=== PATIENT | male | born 1955 | race African-American/Black ===

== ENCOUNTER 2018-11-07 18:05 | Inpatient (IN) | payer SELFPAY ==
[~2018-11-07 18:05] MED LIST: ISOVUE-370 76%-LOCM 1 ML ONE
[2018-11-07] MEDS ORDERED: Nitroglycerin 0.4 MG TAB 1 EACH ONE (19:28)
[2018-11-07] MEDS ORDERED: Nitroglycerin 2% Ointment 1 INCH/1 GM Packet ONE (19:52)
[2018-11-07] MEDS: Nitroglycerin 2% Ointment 1 INCH/1 GM Packet TOP SCH (19:58)
[2018-11-07 20:00] LABS: CKMB 9.3 ng/mL (0-6.6)
--- NOTE | 2018-11-07 20:51 | CT ---
CT ANGIO CHEST AND ABDOMEN WITH INTRAVENOUS CONTRAST ENHANCEMENT AND 3D RECONSTRUCTIONS: HISTORY: Chest pain. TECHNIQUE: This is done per the aortic dissection protocol. FINDINGS: CHEST: The lungs are clear of any infiltrative process. The lungs appear somewhat hyperexpanded. N o pleural effusions. No infiltrates. No significant mediastinal or hilar adenopathy. There is good pulmonary arterial opacification. There is no CT evidence for pulmonary embolus. There is adequate arterial opacification with atherosclerotic changes of the aortic arch. There are no signs of dissection. The ascending aorta is 3.3 cm in AP dimension. ABDOMEN: The liver, spleen, pancreas, and gallbladder regions appear unremarkable, given the angiogr aphic phase. The right and left adrenal glands and the right and left kidneys are normal in size. No free fluid. The abdominal aorta is normal in caliber. No signs of dissection. The iliac vessels are tortuous. IMPRESSION: No evidence of aortic aneurysm or dissection. POS: RAND
[2018-11-07] MEDS ORDERED: Ondansetron ODT 4 MG TAB PO PRN (21:53)
[2018-11-07] MEDS ORDERED: Morphine 2 MG/ML SYRINGE SLOW IVP PRN (21:53)
[2018-11-07] MEDS ORDERED: Temazepam 15 MG CAP PO PRN (21:53)
[2018-11-07] MEDS ORDERED: Nitroglycerin 0.4 MG TAB (25 Tab Bottle) SL PRN (21:53)
[2018-11-07] MEDS ORDERED: Ondansetron PF 4 MG/2 ML Vial IVP PRN (21:53)
[2018-11-07] MEDS ORDERED: Acetaminophen 325 MG TAB PO PRN (21:53)
[2018-11-07] MEDS ORDERED: Aspirin 325 mg Enteric Coated Tablet PO SCH (22:15)
[2018-11-07] MEDS ORDERED: Enoxaparin Sodium 60 MG/0.6 ML SYRINGE SC SCH (22:15)
[2018-11-07] MEDS ORDERED: Aspirin 325 MG TAB PO SCH (22:15)
[2018-11-07 22:25] LABS: Troponin I 1.344 ng/mL (< 0.028)
[2018-11-07] MEDS ORDERED: Enoxaparin Sodium 60 MG/0.6 ML SYRINGE ONE (23:15)
--- NOTE | 2018-11-08 03:08 | HP ---
PRIMARY CARE PHYSICIAN: The patient does not have a primary care physician. CHIEF COMPLAINT: Chest pain. HISTORY OF PRESENT ILLNESS: Mr. Ontiveros is a pleasant 63-year-old gentleman, who has no significant past medical history. He says that around 12:40 pm, he had just finished making a sandwich and started to eat it when he started having pain in his chest. He said it went all across the front side of his chest and went into his back. He said it felt scary. He said both hands were weak and he felt like he could not hold anything tightly. He felt short of breath like he could not breathe and felt cold all over. He did not have any nausea or vomiting however. Because of these symptoms, he went to the ER in [place]. He says they gave him a sublingual nitroglycerin and the pain went away after about 30 minutes. He says that the pain lasted for about 2 hours altogether. He has never had any pain like this before. He denies any palpitations. No lower extremity edema. He does have occasional shortness of breath and says he has been diagnosed with "bronchitis." He does admit to a long history of smoking for at least 20 years. REVIEW OF SYSTEMS: All systems were reviewed and are negative except for that mentioned in the history of present illness. PAST MEDICAL HISTORY: Significant for bronchitis, he has had couple of episodes. PAST SURGICAL HISTORY: Negative. ALLERGIES: NO KNOWN DRUG ALLERGIES. SOCIAL HISTORY: He is single, but he does have a girlfriend. He has 8 children, who live in [place] where he is originally from. He has been in this country for about 20 years. He smokes cigars about 2 to 3 a day. He smokes marijuana, but no other drugs. He does drink a couple of beers daily and he would like to be a full code. He has never designated anybody to be his surrogate decision maker. FAMILY HISTORY: Significant for bronchitis. CURRENT MEDICATIONS: None. PHYSICAL EXAMINATION: GENERAL: He is alert and oriented. He appears to be in no acute distress. VITAL SIGNS: Blood pressure is 119/80, heart rate in the 80s, respiratory rate is 16, and he is afebrile. HEENT: His pupils are equal, round, and reactive. Extraocular muscles are intact. Sclerae anicteric. Throat, there is no erythema, no exudates. NECK: No adenopathy. No bruits. LUNGS: Clear to auscultation. There is no wheezing. No rales. No rhonchi. CARDIOVASCULAR: He had a normal S1 and S2. I did not appreciate an S3 or S4. No murmurs, clicks, or rubs. ABDOMEN: Soft. It is nontender and nondistended. Positive for bowel sounds. There is no rebound, no guarding. No organomegaly. EXTREMITIES: There is no edema. No calf tenderness. No joint crepitus. NEUROLOGIC: Cranial nerves 2 through 12 are grossly intact. His muscle strength is 5/5 in both his upper and lower extremities. SKIN AND INTEGUMENT: No skin changes. No rashes. LABORATORY DATA: Troponin was 0.363. His white blood cell count is 8.2, hemoglobin 15.9, hematocrit is 47.1, and platelet count is 208. Sodium 138, potassium 3.9, chloride is 103, CO2 is 24, BUN of 8, creatinine 0.83, glucose is 143, total bilirubin is 1.7. IMAGING: EKG; sinus rhythm, the rate was 57. There were no ST wave changes. This is by my reading. Chest x-ray showed some increased interstitial markings. He may have had a nodule possibly in the right lower lobe. Heart size was normal. This is also by my reading. ASSESSMENT: 1. This is a pleasant 63-year-old gentleman who presents with chest pain and also an elevated troponin. CT was negative for aneurysm or dissection. The most likely etiology is an acute coronary syndrome, possibly NSTEMI. He will be admitted to telemetry. We will place him on aspirin, nitrates, a beta-enid as tolerated and Lovenox. Obtain an echocardiogram. Consult Cardiology. He has been counseled on the dangers and the need to stop smoking. Further recommendations to follow. 2. Probable chronic obstructive pulmonary disease. It is noted that his oxygen level has been fluctuating here in the ER. He has a long history of smoking. We will place him on DuoNeb p.r.n. 3. He will be placed on GI prophylaxis. Job ID: [id number]
[2018-11-08 03:31] LABS: #Basophils 0.1 thou/uL (0.0-0.2); #Eosinphils 0.6 thou/uL (0.0-0.7); #Monocytes 0.8 thou/uL (0.11-0.59); #Neutrophils 3.7 thou/uL (1.40-6.50); %Basophils 1.3 % (0.0-1.0); %Eosinophils 7.1 % (0.0-10.0); %Lymphocytes 36.3 % (21.0-51.0); %Monocytes 9.4 % (0.0-10.0); %Neutrophils 45.8 % (42.0-75.0); Hemoglobin 14.6 g/dL (14.0-18.0); Mean Corpuscular HGB CONC 33.7 g/dL (32.0-36.0); Mean Corpuscular Hemoglobin 32.9 pg (27.0-31.0); Mean Corpuscular Volume 97.7 fL (78.0-98.0); Platelet Count 214 thou/uL (130-400); RBC Distribution Width 11.2 % (11.5-14.5); Red Blood Cell (RBC) Count 4.43 mill/uL (4.70-6.10); White Blood Cell (WBC) Count 8.2 thou/uL (4.8-10.8)
[2018-11-08 03:51] LABS: Anion Gap 11 mmol/L (10-20); BUN (Urea Nitrogen) 7 mg/dL (8.4-25.7); Calc. Creatinine Clearance 0 mL/min (70-130); Calcium 9.4 mg/dL (7.8-10.44); Carbon Dioxide 27 mmol/L (23-31); Cardiac Risk 3.4 (Less than 4.5); Chloride 103 mmol/L (98-107); Cholesterol 196 mg/dl (< 200 Desired); Estimated GFR-MDRD Greater than 90; Glucose 95 mg/dL (80-115); HDL Cholesterol 58 mg/dL (>60 Neg Risk); LDL Cholesterol, Calculated 125 mg/dL; Potassium 3.8 mmol/L (3.5-5.1); Sodium 137 mmol/L (136-145); Triglycerides 65 mg/dL (Less than 150)
[2018-11-08] MEDS ORDERED: Dextrose 5 %-0.45 % NaCl 1,000 ML IV SCH (08:30)
[2018-11-08 09:28] LABS: CKMB 14.6 ng/mL (0-6.6)
[2018-11-08] MEDS ORDERED: Famotidine 20 MG TAB ONE (09:48)
[2018-11-08] MEDS ORDERED: Aspirin 325 MG TAB ONE (09:50)
[2018-11-08] MEDS ORDERED: Enoxaparin Sodium 60 MG/0.6 ML SYRINGE ONE (09:50)
[2018-11-08 12:10] LABS: Critical Call Chem Troponin I RESULT DECREASING; Troponin I 3.548 ng/mL (< 0.028)
[2018-11-08 12:43] LABS: Amphetamine Not Detected (NotDetected); Barbiturates Screen Not Detected (NotDetected); Benzodiazepine Screen Not Detected (NotDetected); Cocaine Metabolite Screen Not Detected (NotDetected); Medtox Control Line Valid? VALID (VALID); Medtox Reader # READER 4; Methadone Not Detected (NotDetected); Methamphetamine Not Detected (NotDetected); Opiate Screen Not Detected (NotDetected); Oxycodone Screen Not Detected (NotDetected); Phencyclidine (PCP) Not Detected (NotDetected); THC/Cannabinoid Screen Detected (NotDetected); Tricyclic Screen Not Detected (NotDetected)
[2018-11-08 17:21] VITALS: BMI 18.3
[2018-11-08] MEDS ORDERED: Communication Order-Pharmacy FS SCH (17:45)
[2018-11-08] MEDS: Aspirin 325 mg Enteric Coated Tablet PO SCH (18:16)
[2018-11-08] MEDS: Enoxaparin Sodium 60 MG/0.6 ML SYRINGE SC SCH ×2 (18:16→21:11)
[2018-11-08] MEDS: Carvedilol 3.125 MG TAB PO SCH ×2 (18:16→19:13)
[2018-11-08] MEDS: Famotidine 20 MG TAB PO SCH ×2 (18:17→21:11)
[2018-11-08] MEDS: Nitroglycerin 2% Ointment 1 INCH/1 GM Packet TOP SCH ×2 (18:17→21:26)
--- NOTE | 2018-11-08 18:59 | PDOC.PN ---
- Subjective Encounter Start Date: 11/08/18 Encounter Start Time: 09:30 Patient seen and examined for NSTEMI. No CP/SOB or palpitations. No new complaints. No overnight events - Objective Resuscitation Status - Order Detail: 11/07/18 21:44 Resuscitation Status Routine Resuscitation Status: FULL: Full Resuscitation MAR Reviewed: Yes Vital Signs & Weight: Vital Signs (12 hours) Temp Pulse Resp BP Pulse Ox 11/08/18 17:35 98 11/08/18 17:17 97.8 F 60 18 121/68 95 Weight Weight 110 lb Result Diagrams: 11/08/18 03:18 11/08/18 03:18 Additional Labs: Laboratory Tests 11/08/18 11/08/18 08:27 10:10 CK-MB (CK-2) 14.6 H* Troponin I 4.488 H* U Cannabinoids Screen Detected H Radiology Reviewed by me: Yes (CXR - No infiltrate) EKG Reviewed by me: Yes (Tele SR) Phys Exam - Physical Examination Constitutional: NAD Respiratory: no wheezing, no rales, no rhonchi, clear to auscultation bilateral Cardiovascular: RRR, no rub no heaves/pulsations Gastrointestinal: soft, non-tender, no distention, positive bowel sounds Musculoskeletal: no edema, pulses present Neurological: non-focal, normal sensation, moves all 4 limbs Psychiatric: normal affect, A&O x 3 Dx/Plan - Plan DVT proph w/SCDs 1. Chest pain/NSTEMI 2. Tobacco dep 3. Cannabis abuse 4. Med noncompliance PLAN: Cont ASA/Lovenox/Statins/Coreg/NTG patch AM labs Echo Await Cardio input Start IVF Review of Systems - Review of Systems Respiratory: negative: Cough, Dry, Shortness of Breath, Hemoptysis, SOB with Excertion, Pleuritic Pain, Sputum, Wheezing Cardiovascular: negative: chest pain, palpitations, orthopnea, paroxysmal nocturnal dyspnea, edema, light headedness, other - Medications/Allergies Allergies/Adverse Reactions: Allergies Allergy/AdvReac Type Severity Reaction Status Date / Time No Known Drug Allergies Allergy Verified 11/08/18 18:40 Medications: Current Medications Acetaminophen (Tylenol) 650 mg PO Q4H PRN PRN Reason: Headache/Fever/Mild Pain (1-3) Albuterol/Ipratropium (Duoneb) 3 ml NEB Q4H PRN PRN Reason: SOB &/or Wheezing Aspirin (Ecotrin) 325 mg PO DAILY [facility] Last Admin: 11/08/18 18:16 Dose: Not Given Atorvastatin Calcium (Lipitor) 40 mg PO HS [facility] Carvedilol (Coreg) 3.125 mg PO BID-[facility] Last Admin: 11/08/18 18:16 Dose: Not Given Enoxaparin Sodium (Lovenox) 50 mg SC 0900,2100 [facility] Stop: 11/08/18 23:59 Last Admin: 11/08/18 18:16 Dose: Not Given Famotidine (Pepcid) 20 mg PO BID [facility] Last Admin: 11/08/18 18:17 Dose: Not Given Sodium Chloride (Normal Saline 0.9%) 1,000 mls @ 100 mls/hr IV .Q10H [facility] Miscellaneous Information (Communication Order-Pharmacy) 0 each FS ONE [facility] Stop: 11/08/18 23:59 Morphine Sulfate (Morphine) 2 mg SLOW IVP Q5M PRN PRN Reason: Chest Pain Nitroglycerin (Nitrostat) 0.4 mg SL Q5MIN PRN PRN Reason: Chest Pain Nitroglycerin (Nitro-Bid 2% Ointment) 0.5 inch TOP Q8HR [facility] Last Admin: 11/08/18 18:17 Dose: Not Given Ondansetron HCl (Zofran Odt) 4 mg PO Q6H PRN PRN Reason: Nausea/Vomiting Ondansetron HCl (Zofran) 4 mg IVP Q6H PRN PRN Reason: Nausea/Vomiting Temazepam (Restoril) 15 mg PO HSPRN PRN PRN Reason: Insomnia
[2018-11-08] MEDS ORDERED: Atorvastatin Calcium 40 MG TAB PO SCH (21:00)
--- NOTE | 2018-11-09 00:03 | CON ---
DATE OF CONSULTATION: HISTORY OF PRESENT ILLNESS: Chester Ontiveros is a 63-year-old black male, originally from [place], admitted with a non-STEMI. Over the last 2 weeks, he has had 2 episodes that would awaken him in the middle of night where he could not breathe and had chest pressure associated with this. One time, he took Benadryl and seemed to have improvement. Second time, his girlfriend called EMS and he was taken to [facility] and was told that was bronchitis and then he was released. 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 He was then transferred here for further evaluation after he had positive cardiac enzymes. He may have had a very mild episode on the way here, but denies any further episodes of chest discomfort. PAST MEDICAL HISTORY: He denies any history of hypertension, diabetes, or hypercholesterolemia. MEDICATIONS: None. ALLERGIES: NONE. SURGERIES: None. 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 He states that he lost his job 3 years ago. He smokes 2 to 3 cigars per day as well as smokes marijuana and has several beers per day. FAMILY HISTORY: Negative for coronary artery disease. REVIEW OF SYSTEMS: A 12-point review of systems is otherwise unremarkable. PHYSICAL EXAMINATION: VITAL SIGNS: Blood pressure 121/68, pulse of 60. HEENT: PERRL. NECK: Supple. CHEST: Clear. CARDIAC: S1 and S2 normal without any S3, S4, or murmurs. Carotid upstrokes normal without bruits. ABDOMEN: Normal bowel sounds without tenderness or organomegaly. EXTREMITIES: Revealed no clubbing, cyanosis, or edema. NEUROLOGIC: Grossly intact. SKIN: Warm and dry. LABORATORY DATA: EKG reveals sinus bradycardia and is unremarkable. CBC is unremarkable. Sodium 137, potassium 3.8, chloride 27, BUN 7, creatinine 0.78. CK-MB 14.6, troponin I 4.488. Cholesterol 196, triglycerides 65, HDL 58, LDL 125. IMPRESSION: 1. [id number] myocardial infarction with approximately 2 hours of chest discomfort. He had no shortness of breath, diaphoresis, nausea, or vomiting. 2. Smoker. 3. Marijuana use. 4. Hypercholesterolemia. PLAN: Situation discussed with the patient. It was recommended that he undergo cardiac catheterization. Risks of this have been discussed including , myocardial infarction, dye reaction, vascular injury, CVA, transfusion, limb loss, renal loss, etc. Also risk of intervention with PTCA and stent placement were discussed including , myocardial infarction, emergent CABG, restenosis, stent thrombosis, vessel perforation, etc. With lack of insurance plan, I am not certain as to his compliance, I would place a bare-metal stent. Job ID: [id number] [facility] CENTERoRjas
[2018-11-09] MEDS: Nitroglycerin 2% Ointment 1 INCH/1 GM Packet TOP SCH (05:56)
[2018-11-09] MEDS: Famotidine 20 MG TAB PO SCH (05:56)
[2018-11-09] MEDS: Aspirin 325 mg Enteric Coated Tablet PO SCH (05:57)
[2018-11-09] MEDS: Carvedilol 3.125 MG TAB PO SCH (05:57)
[2018-11-09] MEDS ORDERED: Sodium Chloride 0.9% 1,000 ML IV SCH ×2 (06:00→07:46)
[2018-11-09] MEDS ORDERED: Heparin 10,000 UNITS/1 ML VIAL ONE (07:01)
[2018-11-09] MEDS ORDERED: Fentanyl 100 MCG/2 ML VIAL ONE (07:04)
[2018-11-09] MEDS ORDERED: Midazolam HCl 2 mg/2 ml Vial ONE (07:05)
[2018-11-09] MEDS ORDERED: Protamine Sulfate 50 MG/5 ML VIAL ONE (07:25)
[2018-11-09] MEDS ORDERED: Acetaminophen/Codeine 30-300mg Tablet PO PRN ×2 (07:45)
[2018-11-09] MEDS ORDERED: Sodium Chloride 0.9% 200 ML IV PRN (07:45)
[2018-11-09] MEDS ORDERED: Nitroglycerin 0.4 MG TAB (25 Tab Bottle) SL PRN (07:45)
[2018-11-09 11:14] VITALS: TEMP 98.5
[2018-11-09] MEDS ORDERED: Iopamidol 370 76% 100 ML VIAL ONE (11:44)
[2018-11-09] MEDS ORDERED: Iopamidol 370 76% 50 ML VIAL FS ONE (11:44)
[2018-11-09 14:58] VITALS: BP 111/63
--- NOTE | 2018-11-09 16:21 | EKG ---
Test Reason : S/P CATH Blood Pressure : / mmHG Vent. Rate : 051 BPM Atrial Rate : 051 BPM P-R Int : 188 ms QRS Dur : 086 ms QT Int : 440 ms P-R-T Axes : 074 010 036 degrees QTc Int : 405 ms Sinus bradycardia Otherwise normal ECG When compared with ECG of 07-NOV-2018 19:18, (Unconfirmed) ST elevation now present in Anterior leads Confirmed by DR. Dunia FARRIS ([id number]) on 11/09/2018 4:21:43 PM Referred By: LADONNA Confirmed By:DR. Dunia FARRIS
--- NOTE | 2018-11-10 10:38 | EKG ---
Test Reason : Blood Pressure : / mmHG Vent. Rate : 057 BPM Atrial Rate : 057 BPM P-R Int : 186 ms QRS Dur : 076 ms QT Int : 414 ms P-R-T Axes : 073 -07 028 degrees QTc Int : 402 ms Sinus bradycardia Otherwise normal ECG Confirmed by JOSE LUIS PATTERSON ([id number]), newspaper editor JOSEPH JONES ([id number]) on 11/10/2018 10:38:28 AM Referred By: Confirmed By:JOSE LUIS PATTERSON
--- NOTE | 2018-11-11 02:14 | DIS ---
DATE OF ADMISSION: 11/07/2018 DATE OF DISCHARGE: 11/09/2018 DISCHARGE DISPOSITION: Home. FOLLOWUP: 1. Follow up with primary care physician at [facility] next week. 2. Follow up with Dr. Kennedy Reyes in 2 to 3 weeks. DISCHARGE MEDICATIONS: 1. Sublingual nitroglycerin as needed. 2. Aspirin 325 mg daily. 3. Toprol-XL 25 mg daily. 4. Imdur 60 mg at bedtime. 5. Lipitor 40 mg at bedtime. ALLERGIES: NO KNOWN DRUG ALLERGIES. THE PATIENT WAS SEEN AND EXAMINED ON THE DAY OF DISCHARGE. DENIES ANY NEW COMPLAINTS. NO CHEST PAIN, SHORTNESS OF BREATH, OR PALPITATIONS REPORTED. BRIEF HOSPITAL COURSE: The patient is a 63-year-old male who presented to the emergency room with chest discomfort. Please refer to the history and physical for further details. The patient was admitted to the telemetry unit with a diagnosis of [id number] PR. His maximum troponin was 4.4 with a CK-MB of 14.6. He was started on aspirin, Lovenox, beta blockers, and statins. He was evaluated by Cardiology, Dr. Reyes. He also underwent CT aortic dissection protocol in the emergency room, which was negative. Cardiac catheterization was performed that showed focal stenosis in the left main with 30% stenosis in the first diagonal, 40% stenosis in the mid LAD, 40% stenosis in the distal LAD, 20% stenosis in the left circumflex, and 40% stenosis in the proximal RCA. His medications have been optimized by Cardiology. He has been cleared by Cardiology for discharge. DIAGNOSTIC TESTS: 1. LDL 125, HDL 58, cholesterol 196, triglycerides 65. 2. Urine drug screen positive for cannabinoids. FINAL DIAGNOSES: 1. Non-ST elevation myocardial infarction/chest pain. 2. Tobacco dependence. The patient was counseled. 3. Cannabis abuse. 4. Medication noncompliance. 5. Hyperlipidemia. 6. Suspected coronary spasm. PLAN: Plan of care was discussed with the patient in detail. He stated understanding. Job ID: [id number]
== END 2018-11-09 19:07 | disposition home or self-care (01) | DRG 282 ==
LOC: ERS 18:05 → ERHOLD 21:04 → 2NO 11-08 17:11
PROVIDERS: ADMIT Emergency Medicine; ATTEND Emergency Medicine
PROC: 4A023N7 Measurement of Cardiac Sampling and Pressure, Left Heart, Percutaneous Approach (ICD-10-PCS; principal; 2018-11-09)
PROC: B2111ZZ Fluoroscopy of Multiple Coronary Arteries using Low Osmolar Contrast (ICD-10-PCS; 2018-11-09)
PROC: B2151ZZ Fluoroscopy of Left Heart using Low Osmolar Contrast (ICD-10-PCS; 2018-11-09)
DX: I21.4 Non-ST elevation (NSTEMI) myocardial infarction (principal); F17.200 Nicotine dependence, unspecified, uncomplicated; F12.10 Cannabis abuse, uncomplicated; E78.00 Pure hypercholesterolemia, unspecified; Z91.14 Patient's other noncompliance with medication regimen; I25.10 Atherosclerotic heart disease of native coronary artery without angina pectoris
CPT/HCPCS: 36415; 71275; 80048; 80061; 80306; 82553; 84484; 85025; 85347; 93005; 93010; 93458; 99152; C1769; J1644; J1650; J2250; J2720; J3010; Q9966; Q9967